=== PATIENT | female | born 1990 | race African-American/Black ===

== ENCOUNTER 2017-02-25 16:47 | Emergency (ER) | payer MEDICAID, OTHER ==
[~2017-02-25] VITALS: Ht 165.1 cm; Wt 77.2 kg
[~2017-02-25 16:47] MED LIST: CLARITIN
[2017-02-25 17:48] LABS: BASOPHILS % (AUTO) 0.5 % (0.0-2.0); EOSINOPHILS % (AUTO) 3.8 % (1.0-6.0); HEMATOCRIT 36.3 % (36-46); HEMOGLOBIN 11.5 g/dL (12.0-16.0); LYMPHOCYTES # (AUTO) 1.4 K/uL (1.0-4.8); LYMPHOCYTES % (AUTO) 12.2 % (22.0-44.0); MEAN CORPUSCULAR HEMOGLOBIN 28.9 pg (26.0-34.0); MEAN CORPUSCULAR HGB CONC 31.7 G/dL (31.0-37.0); MEAN CORPUSCULAR VOLUME 91 fL (80-100); MONOCYTES # (AUTO) 0.8 K/uL (0.1-1.0); MONOCYTES % (AUTO) 7.1 % (2.0-9.0); NEUTROPHILS # (AUTO) 8.7 K/uL (1.8-7.7); NEUTROPHILS % (AUTO) 76.4 % (40.0-70.0); PLATELET COUNT (AUTO) 281 K/uL (150-450); RED BLOOD CELL COUNT(AUTO) 3.98 MIL/uL (4.00-5.20); RED CELL DISTRIBUTION WIDTH 13.1 % (11.5-14.5); WHITE BLOOD COUNT (AUTO) 11.4 K/uL (4.5-11.0)
[2017-02-25] MEDS ORDERED: OMEP20 PO (19:29)
[2017-02-25] MEDS ORDERED: ATOR40TA28 PO (19:29)
[2017-02-25] MEDS ORDERED: METF500T4 PO (19:29)
[2017-02-25] MEDS ORDERED: ASPI-1093 PO (19:29)
[2017-02-25] MEDS ORDERED: DOXY150T PO (19:29)
[2017-02-25] MEDS ORDERED: LISI-660 PO (19:29)
[2017-02-25] MEDS ORDERED: CARV3 PO (19:29)
[2017-02-25 19:38] VITALS: BP 139/81
== END 2017-02-25 19:40 | disposition home or self-care (01) ==
LOC: EMS 16:52
DX: N93.8 Other specified abnormal uterine and vaginal bleeding (principal); D25.9 Leiomyoma of uterus, unspecified
CPT/HCPCS: 76856; 86901; 99285

== ENCOUNTER 2017-06-02 06:51 | Emergency (ER) | payer MEDICAID, OTHER ==
[~2017-06-02] VITALS: Ht 165.1 cm; Wt 75.0 kg
[~2017-06-02 06:51] MED LIST changes: +ASPI-1093 PO; +ATOR40TA28 PO; +CARV3 PO; -CLARITIN; +DOXY150T PO; +LISI-660 PO; +METF500T4 PO; +OMEP20 PO
[2017-06-02] MEDS ORDERED: CEPH500 PO (07:04)
[2017-06-02] MEDS ORDERED: CARB15OT AD (07:04)
[2017-06-02] MEDS ORDERED: IBUP-2070 PO (07:04)
[2017-06-02 09:16] VITALS: BP 129/89
== END 2017-06-02 09:19 | disposition home or self-care (01) ==
LOC: EMS 06:52
DX: H60.91 Unspecified otitis externa, right ear (principal); I10 Essential (primary) hypertension; Z88.0 Allergy status to penicillin; Z88.8 Allergy status to other drugs, medicaments and biological substances
CPT/HCPCS: 99283

== ENCOUNTER 2017-12-13 04:55 | Emergency (ER) | payer OTHER ==
[~2017-12-13] VITALS: Ht 165.1 cm; Wt 79.1 kg
[2017-12-13 04:55] VITALS: BP 150/90
[~2017-12-13 04:55] MED LIST changes: -ASPI-1093 PO; -ATOR40TA28 PO; +CARB-188 AD; -CARV3 PO; +CEPH500 PO; -DOXY150T PO; +IBUP-2070 PO; -LISI-660 PO; -METF500T4 PO; -OMEP20 PO
[2017-12-13] MEDS ORDERED: DiphenhydrAMINE HCL 50 MG/ML VIAL IM ONE (05:30)
== END 2017-12-13 05:47 | disposition home or self-care (01) ==
LOC: EMS 04:55
DX: H60.91 Unspecified otitis externa, right ear (principal); L29.9 Pruritus, unspecified; I10 Essential (primary) hypertension; Z88.0 Allergy status to penicillin; Z88.8 Allergy status to other drugs, medicaments and biological substances
CPT/HCPCS: 96372; 99283; J1200

== ENCOUNTER 2024-10-20 12:35 | Inpatient (IN) | payer BC, MEDICAID, OTHER ==
[~2024-10-20] VITALS: Ht 167.6 cm; Wt 88.2 kg
[2024-10-20 13:03] LABS: COVID AG,FIA SOURCE NASAL SWAB
[2024-10-20] MEDS: 0.9% SODIUM CHLORIDE 10 ML SYRINGE IVP PRN (13:27)
[2024-10-20] MEDS: SODIUM CHLORIDE 0.9% 2,650 ML IV ONE ×2 (13:28→13:29)
[2024-10-20] MEDS: ACETAMINOPHEN 1000 MG/ISO-OSM 100 ML IV ONE (13:29)
[2024-10-20 13:38] LABS: INFLUENZA TYPE A NEGATIVE FOR TYPE A (NEGATIVE); INFLUENZA TYPE B NEGATIVE FOR TYPE B (NEGATIVE); SARS-COV2 (COVID) ANTIGEN,FIA Negative (Negative)
[2024-10-20] MEDS: LEVOFLOXACIN 500 MG/D5% WATER 100 ML IV ONE (13:48)
[2024-10-20 14:03] LABS: BASOPHILS % (AUTO) 0.4 % (0.0-2.0); EOSINOPHILS % (AUTO) 0.4 % (1.0-6.0); HEMATOCRIT 37.2 % (36-46); LYMPHOCYTES # (AUTO) 0.4 K/uL (1.0-4.8); LYMPHOCYTES % (AUTO) 3.8 % (22.0-44.0); MEAN CORPUSCULAR HEMOGLOBIN 29.6 pg (26.0-34.0); MEAN CORPUSCULAR HGB CONC 32.3 G/dL (31.0-37.0); MEAN CORPUSCULAR VOLUME 92 fL (80-100); MONOCYTES # (AUTO) 0.3 K/uL (0.1-1.0); MONOCYTES % (AUTO) 3.4 % (2.0-9.0); NEUTROPHILS # (AUTO) 9.4 K/uL (1.8-7.7); PLATELET COUNT (AUTO) 283 K/uL (150-450); RED BLOOD CELL COUNT(AUTO) 4.06 MIL/uL (4.00-5.20); RED CELL DISTRIBUTION WIDTH 12.9 % (11.5-14.5); WHITE BLOOD COUNT (AUTO) 10.3 K/uL (4.5-11.0)
[2024-10-20 14:17] LABS: ANION GAP 11 mmol/L (8-16); CALCIUM, TOTAL 8.8 mg/dL (8.8-10.5); CARBON DIOXIDE 26 mmol/L (22-29); CHLORIDE 100 mmol/L (98-107); CREATININE 1.06 mg/dL (0.60-1.30); GLOMERULAR FILTR. RATE CALC > 60 mL/min (>60); GLUCOSE,RANDOM 89 mg/dL (70-110); SODIUM SERUM 137 mmol/L (136-145); UREA NITROGEN, BLOOD 7 mg/dL (7-18)
[2024-10-20 14:18] LABS: B-TYPE NATRIURETIC PEPTIDE 93 pg/mL (0-100)
[2024-10-20 14:24] LABS: APPEARANCE,URINE CLEAR (CLEAR); BILIRUBIN,URINE NEGATIVE (NEGATIVE); COLOR,URINE LIGHT YELLOW (YELLOW); GLUCOSE, URINE (UA) NEGATIVE (NEGATIVE); KETONES,URINE TRACE mg/dL (NEGATIVE); LEUKOCYTE ESTERASE ,URINE NEGATIVE (NEGATIVE); NITRATE,URINE NEGATIVE (NEGATIVE); OCCULT BLOOD,URINE NEGATIVE (NEGATIVE); PH,URINE 6.5 (5.0-8.0); PROTEIN,URINE NEGATIVE (NEGATIVE); SPECIFIC GRAVITIY, URINE 1.016 (1.003-1.030); UROBILINOGEN,URINE <=1.0 mg/dL (<=1.0)
[2024-10-20 14:24] LABS: TROPONIN I-HIGH SENSITIVITY 12 ng/L (<51)
[2024-10-20 14:25] LABS: LACTIC ACID 1.1 mmol/L (0.4-2.0)
[2024-10-20 14:32] LABS: ALANINE AMINOTRANSFERASE 15 U/L (12-78); ALBUMIN 3.8 g/dL (3.4-5.0); ALKALINE PHOSPHATASE 87 U/L (46-116); ASPARTATE AMINOTRANSFERASE 22 U/L (15-37); BILIRUBIN,TOTAL 0.6 mg/dL (0.1-1.0); HCG,QUANTITATIVE < 1 mIU/mL (0-6); TOTAL PROTEIN, SERUM 8.8 g/dL (6.4-8.2)
[2024-10-20] MEDS ORDERED: IOHEXOL 350 MG/ML 100 ML VIAL ONE ×2 (14:47→16:02)
[2024-10-20] MEDS ORDERED: SODIUM CHLORIDE 0.9% 100 ML ONE ×2 (14:47→16:02)
[2024-10-20] MEDS: LEVALBUTEROL 1.25 MG/0.5 ML NEB SOLUTION NEB ONE (14:52)
[2024-10-20] MEDS: IPRATROPIUM BROMIDE 0.5 MG/2.5 ML NEB SOLUTION NEB ONE (14:52)
[2024-10-20 14:55] VITALS: PULSE 136; RESP 22; O2SAT 96
[2024-10-20 15:07] VITALS: PULSE 140; RESP 18; O2SAT 99
[2024-10-20] MEDS ORDERED: HYDROCODONE/ACETAMINOPHEN 5-325 MG TABLET PO PRN (15:45)
[2024-10-20] MEDS ORDERED: IPRATROPIUM BROMIDE 0.5 MG/2.5 ML NEB SOLUTION NEB PRN (15:45)
[2024-10-20] MEDS ORDERED: MAGNESIUM HYDROXIDE SUSPENSION 30 ML UDCUP PO PRN (15:45)
[2024-10-20] MEDS ORDERED: ZOLPIDEM TARTRATE 5 MG TABLET PO PRN (15:45)
[2024-10-20] MEDS ORDERED: MORPHINE SULFATE 2 MG/ML SYRINGE IVP PRN (15:45)
[2024-10-20] MEDS ORDERED: ONDANSETRON HCL 4 MG/2 ML VIAL IVP PRN (15:45)
[2024-10-20] MEDS ORDERED: ALBUTEROL SULFATE 2.5 MG/0.5 ML NEB SOLUTION NEB PRN (15:45)
[2024-10-20] MEDS ORDERED: BISACODYL 10 MG RECTAL RECTAL SUPPOSITORY PR PRN (15:45)
[2024-10-20] MEDS: *CLINICAL-LEVOFLOXACIN IVPB DOSING CLINICAL ONE (15:48)
[2024-10-20] MEDS ORDERED: POTASSIUM CHL 10 MEQ/WATER 50 ML IV PRN (16:00)
[2024-10-20] MEDS: HEPARIN SODIUM,PORCINE 5,000 UNITS/ML VIAL SQ SCH (16:23)
[2024-10-20] MEDS: BENZONATATE 100 MG CAPSULE PO SCH (16:23)
[2024-10-20] MEDS: POTASSIUM CHLORIDE 20 MEQ ER TABLET PO ONE (16:24)
[2024-10-20] MEDS: MethylPREDNISolone SOD SUCC 125 MG/2 ML VIAL IVP SCH (17:19)
[2024-10-20] MEDS: IBUPROFEN 800 MG TABLET PO ONE (17:38)
[2024-10-20 20:08] VITALS: PULSE 118; RESP 20; O2SAT 93
[2024-10-20] MEDS: IPRATROPIUM BROMIDE 0.5 MG/2.5 ML NEB SOLUTION NEB SCH (20:08)
[2024-10-20] MEDS: ALBUTEROL SULFATE 2.5 MG/0.5 ML NEB SOLUTION NEB SCH (20:08)
[2024-10-20 20:24] VITALS: PULSE 127; RESP 20; O2SAT 99
[2024-10-20] MEDS: GuaiFENesin SR 600 MG ER TABLET PO SCH (21:21)
[2024-10-20] MEDS: DOCUSATE SODIUM 100 MG CAPSULE PO SCH (21:21)
[2024-10-20 21:51] LABS: PH,URINE DRUG SCREEN 6.5 (5.0-8.0)
[2024-10-20 21:53] LABS: ALCOHOL, URINE DRUG SCREEN NEGATIVE (NEGATIVE); AMPHET/METH SCREEN,URINE NEGATIVE (NEGATIVE); BARBITURATE SCREEN, URINE NEGATIVE (NEGATIVE); BENZODIAZEPINES SCREEN,URINE NEGATIVE (NEGATIVE); CANNABINOID SCREEN,URINE NEGATIVE (NEGATIVE); COCAINE SCREEN,URINE NEGATIVE (NEGATIVE); METHADONE SCREEN, URINE NEGATIVE (NEGATIVE); OPIATE SCREEN,URINE NEGATIVE (NEGATIVE); PHENCYCLIDINE SCREEN,URINE NEGATIVE (NEGATIVE)
[2024-10-20 22:19] VITALS: BP 109/73; PULSE 108; RESP 18; TEMP 98.5; O2SAT 100
[2024-10-20] MEDS ORDERED: HYDROCHLOROTHIAZIDE PO (23:21)
[2024-10-21] VITALS (13 sets, daily range): BP systolic 127–154; BP diastolic 71–92; PULSE 89–127; RESP 18–20; TEMP 98.3–100.2; O2SAT 96–100
[2024-10-21 00:02] LABS: INFLUENZA A-RTPCR,COMBO NEGATIVE (NEGATIVE); INFLUENZA B-RTPCR,COMBO NEGATIVE (NEGATIVE); RESPIRATORY SYNCYTIAL VRS-PCR NEGATIVE (NEGATIVE); SARS COVID19 RTPCR, COMBO NEGATIVE (NEGATIVE)
[2024-10-21 06:53] LABS: BASOPHILS % (AUTO) 0.1 % (0.0-2.0); EOSINOPHILS % (AUTO) 0 % (1.0-6.0); HEMATOCRIT 33.3 % (36-46); HEMOGLOBIN 11.1 g/dL (12.0-16.0); LYMPHOCYTES # (AUTO) 0.3 K/uL (1.0-4.8); LYMPHOCYTES % (AUTO) 5.1 % (22.0-44.0); MEAN CORPUSCULAR HEMOGLOBIN 30.5 pg (26.0-34.0); MEAN CORPUSCULAR HGB CONC 33.3 G/dL (31.0-37.0); MEAN CORPUSCULAR VOLUME 92 fL (80-100); MONOCYTES # (AUTO) 0.1 K/uL (0.1-1.0); MONOCYTES % (AUTO) 1.8 % (2.0-9.0); NEUTROPHILS # (AUTO) 6.2 K/uL (1.8-7.7); PLATELET COUNT (AUTO) 274 K/uL (150-450); RED BLOOD CELL COUNT(AUTO) 3.64 MIL/uL (4.00-5.20); RED CELL DISTRIBUTION WIDTH 13.3 % (11.5-14.5); WHITE BLOOD COUNT (AUTO) 6.7 K/uL (4.5-11.0)
[2024-10-21 07:01] LABS: ANION GAP 11 mmol/L (8-16); CALCIUM, TOTAL 8.7 mg/dL (8.8-10.5); CARBON DIOXIDE 26 mmol/L (22-29); CHLORIDE 104 mmol/L (98-107); CREATININE 0.78 mg/dL (0.60-1.30); GLOMERULAR FILTR. RATE CALC > 60 mL/min (>60); GLUCOSE,RANDOM 119 mg/dL (70-110); POTASSIUM 3.2 mmol/L (3.5-5.1); SODIUM SERUM 141 mmol/L (136-145); UREA NITROGEN, BLOOD 6 mg/dL (7-18)
[2024-10-21] MEDS: PANTOPRAZOLE SODIUM 40 MG DR TABLET PO SCH (08:17)
[2024-10-21] MEDS: POTASSIUM CHLORIDE 20 MEQ ER TABLET PO PRN (08:31)
[2024-10-21] MEDS ORDERED: BUDE10.27 IH (11:11)
[2024-10-21] MEDS ORDERED: HYDR50TA PO (11:11)
[2024-10-21] MEDS ORDERED: SODIUM CHLORIDE 0.9% 500 ML IV ONE (11:44)
[2024-10-21] MEDS: LEVOFLOXACIN 750 MG/D5% WATER 150 ML IV SCH (11:46)
[2024-10-21] MEDS: ACETAMINOPHEN 325 MG TABLET PO PRN (11:46)
[2024-10-21] MEDS: CARVEDILOL 6.25 MG TABLET PO SCH (20:49)
[2024-10-22] VITALS (13 sets, daily range): BP systolic 123–145; BP diastolic 75–100; PULSE 80–111; RESP 18–20; TEMP 98–98.8; O2SAT 94–100
[2024-10-22 08:08] LABS: BASOPHILS % (AUTO) 0.1 % (0.0-2.0); EOSINOPHILS % (AUTO) 0 % (1.0-6.0); HEMATOCRIT 34.7 % (36-46); HEMOGLOBIN 11.4 g/dL (12.0-16.0); LYMPHOCYTES # (AUTO) 0.6 K/uL (1.0-4.8); LYMPHOCYTES % (AUTO) 3.3 % (22.0-44.0); MEAN CORPUSCULAR HEMOGLOBIN 30.1 pg (26.0-34.0); MEAN CORPUSCULAR HGB CONC 32.9 G/dL (31.0-37.0); MEAN CORPUSCULAR VOLUME 92 fL (80-100); MONOCYTES # (AUTO) 0.4 K/uL (0.1-1.0); MONOCYTES % (AUTO) 2.2 % (2.0-9.0); NEUTROPHILS # (AUTO) 16.8 K/uL (1.8-7.7); PLATELET COUNT (AUTO) 296 K/uL (150-450); RED BLOOD CELL COUNT(AUTO) 3.78 MIL/uL (4.00-5.20); RED CELL DISTRIBUTION WIDTH 13.2 % (11.5-14.5); WHITE BLOOD COUNT (AUTO) 17.8 K/uL (4.5-11.0)
[2024-10-22 08:09] LABS: NEUTROPHILS % (AUTO) 94.4 % (40.0-70.0)
[2024-10-22 08:20] LABS: ANION GAP 7 mmol/L (8-16); CALCIUM, TOTAL 8.7 mg/dL (8.8-10.5); CARBON DIOXIDE 27 mmol/L (22-29); CHLORIDE 104 mmol/L (98-107); CREATININE 0.89 mg/dL (0.60-1.30); GLOMERULAR FILTR. RATE CALC > 60 mL/min (>60); GLUCOSE,RANDOM 120 mg/dL (70-110); SODIUM SERUM 138 mmol/L (136-145); UREA NITROGEN, BLOOD 9 mg/dL (7-18)
[2024-10-23 02:06] LABS: HIV 1-2 SCREEN 4TH GEN W/RFLX Non Reactive (Non Reactive)
== END 2024-10-22 20:15 | disposition left against medical advice (07) | DRG 872 ==
LOC: EMS 12:36 → EDH 15:44 → 5S 21:55
PROVIDERS: ADMIT Internal Medicine; ATTEND Internal Medicine
DX: A41.9 Sepsis, unspecified organism (principal); J45.901 Unspecified asthma with (acute) exacerbation; Z20.822 Contact with and (suspected) exposure to COVID-19; I10 Essential (primary) hypertension; E66.9 Obesity, unspecified; J06.9 Acute upper respiratory infection, unspecified; Z53.29 Procedure and treatment not carried out because of patient's decision for other reasons; E87.6 Hypokalemia; Z79.899 Other long term (current) drug therapy; Z88.0 Allergy status to penicillin; Z88.8 Allergy status to other drugs, medicaments and biological substances; Z68.31 Body mass index [BMI] 31.0-31.9, adult; Z98.891 History of uterine scar from previous surgery
CPT/HCPCS: 0241U; 71045; 71275; 74176; 80048; 80076; 80307; 81003; 83605; 83735; 83880; 84132; 84145; 84443; 84484; 84702; 85025; 87040; 87389; 87804; 93005; 93970; 94640; 99285; J0131; J1644; J1956; J2919; J7030; J7040; J7050; 36415-L1; 36415-TC; J7613; Z7610